=== PATIENT | female | born 1965 | race Caucasian/White ===

== ENCOUNTER 2018-10-03 06:09 | Inpatient (IN) | payer OTHER, BC ==
[2018-10-03] MEDS ORDERED: ceFAZolin 2 GM/D5W 50 ML IV BAG (J0690 PER 500MG) As Ordered (06:38)
[2018-10-03] MEDS ORDERED: ceFAZolin 1GM INJ (J0690 PER 500MG) As Ordered (06:39)
[2018-10-03] MEDS: PERCOCET 5MG/325MG TAB PO ×4 (06:50→20:44)
[2018-10-03] MEDS: GABAPENTIN 300 MG CAP PO (06:50)
[2018-10-03] MEDS: CelecoXIB (CeleBREX) 100 MG CAP PO (06:51)
[2018-10-03] MEDS: LR 1,000 ML IV ×2 (07:00→17:55)
[2018-10-03] MEDS: BUPIVACAINE HCL 0.25% 30 ML VIAL As Ordered (07:08)
[2018-10-03] MEDS ORDERED: dexameTHASONE 4 MG/ML 1ML VIAL (J1100) As Ordered (07:15)
[2018-10-03] MEDS ORDERED: fentaNYL 100 MCG/2 ML INJECTION (J3010) As Ordered (07:15)
[2018-10-03] MEDS ORDERED: MIDAZOLAM INJ 2 MG/2 ML VIAL (J2250) As Ordered (07:15)
[2018-10-03] MEDS ORDERED: LIDOCAINE 2% INJ 100 MG/5 ML SYRINGE As Ordered ×3 (07:15→07:18)
[2018-10-03] MEDS ORDERED: ROCURONIUM BROMIDE 50 MG/5 ML VIAL As Ordered ×2 (07:15→08:29)
[2018-10-03] MEDS ORDERED: PROPOFOL 200 MG/20 ML VIAL As Ordered (07:15)
[2018-10-03] MEDS ORDERED: LIDOCAINE 2% INJ 100 MG/5 ML SDV (FOR ANES.) As Ordered (07:18)
[2018-10-03] MEDS ORDERED: ePHEDrine SULFATE 25 MG/5 ML(5MG/ML) SYRINGE As Ordered (08:08)
[2018-10-03] MEDS: ceFAZolin SOD 1 GM in D5W MINI-BAG PLUS 50 ML IV (08:18)
[2018-10-03] MEDS ORDERED: HYDROmorphone HCL 2 MG/ML 1ML VIAL (J1170) As Ordered (08:27)
[2018-10-03] MEDS: BUPIVACAINE/EPIN 0.25% 30 ML VIAL As Ordered (08:32)
[2018-10-03] MEDS: POTASSIUM CHLORIDE 10 MEQ SR TABLET PO (09:00)
[2018-10-03] MEDS: buPROPion **SR TABLET** (ZYBAN) 150MG PO (09:00)
[2018-10-03] MEDS: VANCOMYCIN HCL 500 MG/10 ML VIAL (J3370) As Ordered (10:12)
[2018-10-03] MEDS: BACITRACIN PWD 50,000 UNITS VIAL As Ordered (10:13)
[2018-10-03] MEDS: THROMBIN SOLN 20,000 UNITS KIT As Ordered (10:14)
[2018-10-03] MEDS: EPINEPHrine INJ 1 MG/ML 1ML AMP As Ordered (10:15)
[2018-10-03] MEDS: TRANEXAMIC ACID 100 MG/ML 10ML VIAL As Ordered (10:16)
[2018-10-03] MEDS: ceFAZolin 1GM INJ (J0690 PER 500MG) As Ordered (12:15)
[2018-10-03] MEDS: ceFAZolin 2 GM/D5W 50 ML IV BAG (J0690 PER 500MG) As Ordered (12:15)
[2018-10-03] MEDS ORDERED: ONDANSETRON 4MG/2ML VIAL (J2405) As Ordered (14:21)
[2018-10-03] MEDS ORDERED: NEOSTIGMINE 10 MG/10 ML VIAL (J2710) As Ordered (14:22)
[2018-10-03] MEDS ORDERED: GLYCOPYRROLATE INJ 0.2 MG/ML 2 ML VIAL As Ordered ×2 (14:22)
[2018-10-03] MEDS: BUPIVACAINE LIPOSOME/PF 1.3% 20ML VIAL (13.3MG/ML)(EXPAREL)(C9290 PER1MG) As Ordered (14:31)
[2018-10-03] MEDS: BUPIVACAINE HCL 0.5% 10 ML VIAL As Ordered (14:31)
[2018-10-03] MEDS ORDERED: ONDANSETRON 4MG/2ML VIAL (J2405) IV (15:30)
[2018-10-03] MEDS ORDERED: fentaNYL 100 MCG/2 ML INJECTION (J3010) IV (15:30)
[2018-10-03] MEDS: MORPHINE 10 MG/ML 1ML VIAL (J2270) IV ×5 (15:30→15:50)
[2018-10-03] MEDS ORDERED: HYDROMORPHONE HCL 0.5 MG/ 0.5 ML SYRINGE (J1170 PER 1) IV (15:30)
[2018-10-03] MEDS ORDERED: METOCLOPRAMIDE INJ 10MG/2ML VIAL (J2765) IV (15:30)
[2018-10-03] MEDS ORDERED: PERCOCET 5MG/325MG TAB PO (15:45)
[2018-10-03] MEDS ORDERED: CYCLOBENZAPRINE 10 MG TAB PO (16:00)
[2018-10-03] MEDS ORDERED: ACETAMINOPHEN TAB 650MG DOSE (2X325MG) PO (16:00)
[2018-10-03] MEDS: HYDROMORPHONE HCL 0.5 MG/ 0.5 ML SYRINGE (J1170 PER 1) IV (17:37)
[2018-10-03] MEDS: MULTIVITAMINS/MINERALS THERAP 1 TAB PO (17:56)
[2018-10-03] MEDS: D5W/LR 1,000 ML IV (18:20)
[2018-10-03] MEDS: PREGABALIN 75 MG CAP(LYRICA) PO (20:43)
[2018-10-04] MEDS: D5W/LR 1,000 ML IV (01:45)
[2018-10-04] MEDS: PERCOCET 5MG/325MG TAB PO ×3 (03:28→11:28)
[2018-10-04 07:02] LABS: ANION GAP 7 MEQ/L (8-16); BLOOD UREA NITROGEN 11 MG/DL (7-18); CALCIUM LEVEL 7.7 MG/DL (8.5-10.1); CARBON DIOXIDE LEVEL 27 MEQ/L (21-32); CHLORIDE LEVEL 106 MEQ/L (98-107); GLOMERULAR FILTRATION RATE > 60.0 (>51); GLUCOSE, FASTING 98 MG/DL (70-100); MAGNESIUM LEVEL 1.8 MG/DL (1.8-2.4); POTASSIUM SERUM 3.9 MEQ/L (3.5-5.1); SODIUM LEVEL 140 MEQ/L (136-145)
[2018-10-04] MEDS ORDERED: ATENOLOL 25 MG TAB PO (09:00)
[2018-10-04] MEDS: METAMUCIL (PSYLLIUM) PACKET PO (09:25)
[2018-10-04] MEDS: PREGABALIN 75 MG CAP(LYRICA) PO (09:26)
[2018-10-04] MEDS: MULTIVITAMINS/MINERALS THERAP 1 TAB PO (09:26)
== END 2018-10-04 12:15 | disposition home or self-care (01) | DRG 460 ==
LOC: M OR 06:09 → M MS5PR 17:05
PROC: 0SG1071 Fusion of 2 or more Lumbar Vertebral Joints with Autologous Tissue Substitute, Posterior Approach, Posterior Column, Open Approach (ICD-10-PCS; principal; 2018-10-03 07:30)
PROC: 0QB00ZZ Excision of Lumbar Vertebra, Open Approach (ICD-10-PCS; 2018-10-03 07:30)
DX: M47.26 Other spondylosis with radiculopathy, lumbar region (principal); Z68.41 Body mass index [BMI] 40.0-44.9, adult; M43.16 Spondylolisthesis, lumbar region; M51.36 Other intervertebral disc degeneration, lumbar region; I10 Essential (primary) hypertension; E78.5 Hyperlipidemia, unspecified; J44.9 Chronic obstructive pulmonary disease, unspecified; E66.9 Obesity, unspecified; M79.7 Fibromyalgia; D50.9 Iron deficiency anemia, unspecified; F41.9 Anxiety disorder, unspecified; F32.9 Major depressive disorder, single episode, unspecified; E83.51 Hypocalcemia; Z79.1 Long term (current) use of non-steroidal anti-inflammatories (NSAID); Z79.899 Other long term (current) drug therapy

== ENCOUNTER → 2018-10-13 | Outpatient (REF) | payer OTHER, BC ==
[2018-10-13 16:16] LABS: BASO # 0.1 10^3/uL (0.0-0.2); BASO % 0.4 % (0.0-1.0); EOS # 0.2 10^3/uL (0.0-0.50); EOS % 1.7 % (0.0-3.0); HEMATOCRIT 32.9 % (36.0-47.0); HEMOGLOBIN 10.2 g/dl (12.0-15.5); IMMATURE GRANULOCYTE % 1.6 % (0-3.0); LYMPH # 3.2 10^3/uL (1.5-4.5); LYMPH % 27.8 % (24.0-44.0); MEAN CORPUSCULAR HEMOGLOBIN 26.8 pg (27.0-33.0); MEAN CORPUSCULAR VOLUME 86.6 fl (80.0-96.0); MONO # 0.7 10^3/uL (0.0-0.8); MONO % 6.1 % (0.0-5.0); NEUTROPHILS # 7.1 10^3/uL (1.8-7.7); NEUTROPHILS % 62.4 % (36.0-66.0); PLATELET COUNT, AUTOMATED 444 10^3/uL (150-450); RED CELL DISTRIBUTION WIDTH 13.1 % (11.5-14.5); WHITE BLOOD COUNT 11.4 10^3/uL (4.0-10.0)
[2018-10-13 16:17] LABS: C REACTIVE PROTEIN QUANTITATIV 1.65 MG/DL (0.00-0.30)
[2018-10-13 17:05] LABS: ERYTHROCYTE SEDIMENTATION RATE 56 mm/hr (0-30)
== END ==
LOC: M LABDRAW1 12:08
DX: Z47.89 Encounter for other orthopedic aftercare (principal)

== ENCOUNTER → 2018-10-20 | Outpatient (REF) | payer OTHER, BC ==
[2018-10-20 12:41] LABS: C REACTIVE PROTEIN QUANTITATIV 1.37 MG/DL (0.00-0.30)
[2018-10-20 13:02] LABS: ERYTHROCYTE SEDIMENTATION RATE 49 mm/hr (0-30)
== END ==
LOC: M LABDRAW1 11:31
DX: Z98.1 Arthrodesis status (principal)
CPT/HCPCS: 86140

== ENCOUNTER → 2018-11-30 | Outpatient (REF) | payer OTHER, BC ==
[~2018-11-30] MED LIST: ATEN25TA PO; BUPR150T5 PO; FERR1TAB8 PO; LYRI150C PO; MELO15TA28 PO; MULTCAP PO; OYST1TAB8 PO; PERC5TAB12 PO; POTA1TAB14 PO; PRAV1TAB39 PO; PROAAER10 INH; VITA50005 PO
== END ==
LOC: M LABDRAW1 11:19
PROVIDERS: ATTEND Orthopaedic Surgery
DX: Z47.89 Encounter for other orthopedic aftercare (principal)

== ENCOUNTER → 2018-12-23 | Outpatient (REF) | payer OTHER, BC | LOC: M LABDRAW1 11:38 | PROVIDERS: ATTEND Orthopaedic Surgery | DX: M43.16 Spondylolisthesis, lumbar region (principal) ==

== ENCOUNTER → 2022-06-30 | Outpatient (CLI) | payer OTHER, BC ==
[~2022-06-30] MED LIST changes: +BUPR-71 PO; -BUPR150T5 PO; -OYST1TAB8 PO; +OYST500T12 PO
== END ==
LOC: M PLALAB 10:09
PROVIDERS: ATTEND Physical Medicine & Rehabilitation
DX: M43.16 Spondylolisthesis, lumbar region (principal)

== ENCOUNTER → 2022-12-17 | Outpatient (CLI) | payer OTHER, BC | LOC: M PLARAD 09:09 | PROVIDERS: ATTEND Physical Medicine & Rehabilitation | DX: M51.37 Other intervertebral disc degeneration, lumbosacral region (principal) ==

== ENCOUNTER → 2024-08-10 | Outpatient (REF) ==
[~2024-08-10] MED LIST changes: +POTA-298 PO; -POTA1TAB14 PO
== END ==
LOC: M PLAIMG 10:48
PROVIDERS: ATTEND Internal Medicine
DX: R52 Pain, unspecified (principal)